=== PATIENT | male | born 1980 | race Caucasian/White ===

== ENCOUNTER 2022-10-08 14:43 | Emergency (ER) | payer OTHER, SELFPAY ==
--- NOTE | 2022-10-08 14:48 | ED.URI ---
HPI - URI/Sore Throat General Chief Complaint: General Medical <Brenda Vasquez NP - Last Filed: 10/08/22 14:49> Stated Complaint: sore throat red eyes congestion <Brenda Vasquez NP - Last Filed: 10/08/22 14:49> Time Seen by Provider: 10/08/22 15:00 <Brenda Vasquez NP - Last Filed: 10/08/22 14:49> History of Present Illness HPI Narrative: Patient complains of cough, runny nose, redness in both eyes that started in 1 eye with discharge and then went to the other, there is no vision loss there is no pain in the eye there is no photophobia Cough is been worsening over last several days, symptoms began about a week ago There is no headache no confusion no dizziness no fainting no feeling faint no difficulty breathing or swallowing no stiff neck no chest pain no shortness of breath no abdominal pain no nausea vomiting or diarrhea no dysuria no skin rash <VICTOR M Harvey - Last Filed: 10/09/22 10:56> Related Data Home Medications: Previous Rx's Medication Instructions Recorded azithromycin 250 mg tablet See Rx Instructions PO .COMPLEX #6 10/08/22 (Zithromax Z-Thiago) tabs polymyxin B sulfate 10,000 1 drp ophthalmic (eye) Q3H 5 days 10/08/22 unit-trimethoprim 1 mg/mL eye #10 mL drops (Polytrim) <Brenda Vasquez NP - Last Filed: 10/08/22 14:49> Allergies/Adverse Reactions: Allergies Allergy/AdvReac Type Severity Reaction Status Date / Time No Known Allergies Allergy Verified 10/08/22 14:49 <Brenda Vasquez NP - Last Filed: 10/08/22 14:49> [facility] [place] Past Medical History Source: nursing notes reviewed <VICTOR M Harvey - Last Filed: 10/09/22 10:56> Social History Social History: Social History Advance Directives: Yes Advance Directives Information Provided: No Advance Directives on File: No <Brenda Vasquez NP - Last Filed: 10/08/22 14:49> Physical Exam Vital Signs: Vital Signs: Last Vital Signs Temp 98.3 F 10/08/22 14:49 Pulse 104 H 10/08/22 14:49 Resp 18 10/08/22 14:49 BP 170/100 H 10/08/22 14:49 Pulse Ox 96 10/08/22 14:49 O2 Del Method 10/08/22 14:49 BMI result Body Mass Index 38.6 <Brenda Vasquez NP - Last Filed: 10/08/22 14:49> Vital Signs: Last Vital Signs Temp 98.3 F 10/08/22 14:49 Pulse 104 H 10/08/22 14:49 Resp 18 10/08/22 14:49 BP 170/100 H 10/08/22 14:49 Pulse Ox 96 10/08/22 14:49 O2 Del Method 10/08/22 14:49 BMI result Body Mass Index 38.6 <VICTOR M Harvey - Last Filed: 10/09/22 10:56> General appearance no acute distress The eyes , visual acuity is normal, both eyes have conjunctival redness and some scant yellow discharge, pupils equal round reactive to light and extraocular motions are intact, there is no photophobia The pharynx is clear without redness swelling or exudate, mucous membranes moist, voice is normal Neck is supple Chest clear to auscultation bilateral Heart no murmur Abdomen soft nontender Extremities no edema no calf tenderness or swelling , full range of motion times Skin no rash <VICTOR M Harvey - Last Filed: 10/09/22 10:56> Course Course Course Narrative: This is rapid medical exam. Deferred additional HPI, ROS, PE to primary provider. 42 yo male healthy here with bilateral eye redness, cough, congestion since Monday. Will send testing for flu, covid, rsv. VSS. <Brenda Vasquez NP - Last Filed: 10/08/22 14:49> This is rapid medical exam. Deferred additional HPI, ROS, PE to primary provider. 42 yo male healthy here with bilateral eye redness, cough, congestion since Monday. Will send testing for flu, covid, rsv. VSS. Patient is treated for possible bacterial conjunctivitis with Polytrim, redness and discharge started in 1 eye and then did go to the other Chest x-ray was normal, the COVID and flu testing were negative Patient is given antibiotic for bronchitis and well-appearing patient with worsening cough but otherwise breathing comfortably ambulating easily tolerating p.o. is discharged <VICTOR M Harvey - Last Filed: 10/09/22 10:56> Medical Decision Making Lab Data MDM Lab Attestation statement: I reviewed the patient's lab results. <VICTOR M Harvey - Last Filed: 10/09/22 10:56> Labs: Lab Results 10/08/22 Range/Units 14:53 Influenza Type A (PCR) NEGATIVE (Negative) Influenza Type B (PCR) NEGATIVE (Negative) RSV RNA Qual (PCR) NEGATIVE (Negative) SARS-CoV-2 RNA (RT-PCR) NEGATIVE (Negative) <Brenda Vasquez NP - Last Filed: 10/08/22 14:49> Lab Results 10/08/22 Range/Units 14:53 Influenza Type A (PCR) NEGATIVE (Negative) Influenza Type B (PCR) NEGATIVE (Negative) RSV RNA Qual (PCR) NEGATIVE (Negative) SARS-CoV-2 RNA (RT-PCR) NEGATIVE (Negative) <VICTOR M Harvey - Last Filed: 10/09/22 10:56> Discharge Plan Discharge Clinical Impression: Conjunctivitis, Bronchitis <Brenda Vasquez NP - Last Filed: 10/08/22 14:49> Patient Disposition: Home, Self-Care <Brenda Vasquez NP - Last Filed: 10/08/22 14:49> Additional Instructions: For the redness and discharge from both eyes which started in 1 eye, it may be viral but because it started in 1 and went to the other there is a chance it is bacterial so we are treating with eyedrops, antibiotic eyedrops For the cough it is probably viral but may be bacterial and so we have given a prescription for Zithromax, best plan is to wait a few days and if cough is getting worse take the antibiotic but if in a day or 2 it is clearly getting better you do not need the antibiotic Return any time for difficulty breathing dehydration, eye pain vision loss any worse condition or any concerns <Brenda Vasquez NP - Last Filed: 10/08/22 14:49> Prescriptions: New polymyxin B sulf-trimethoprim [Polytrim] 10,000 unit- 1 mg/mL drops 1 drp ophthalmic (eye) Q3H 5 Days Qty: 10 0RF Rx Instructions: while awake; do not exceed 6 doses in 24 hours azithromycin [Zithromax Z-Thiago] 250 mg tablet See Rx Instructions .ROUTE .COMPLEX Qty: 6 0RF Rx Instructions: For 250 mg dose pack: take 500 mg today (day 1), then 250 mg for 4 days (days 2-5) <Brenda Vasquez NP - Last Filed: 10/08/22 14:49> Interventions: ED Discharge Assessment Last Done: 10/08/22 16:58 <Brenda Vasquez NP - Last Filed: 10/08/22 14:49> Discharge Date/Time: 10/08/22 17:00 <Brenda Vasquez NP - Last Filed: 10/08/22 14:49>
[2022-10-08 14:49] VITALS: BP 170/100; PULSE 104; RESP 18; TEMP 36.8; O2SAT 96; BMI 38.6
[2022-10-08 16:46] LABS: Influenza A PCR NEGATIVE (Negative); Influenza B PCR NEGATIVE (Negative); Resp Syncy Virus RNA Qual PCR NEGATIVE (Negative); SARS COV2 PCR INHOUSE NEGATIVE (Negative)
== END 2022-10-08 17:00 | disposition home or self-care (01) ==
PROVIDERS: Nurse Practitioner Family; Emergency Provider Emergency Medicine; PCP Internal Medicine
DX: J40 Bronchitis, not specified as acute or chronic (principal); H10.9 Unspecified conjunctivitis; Z20.822 Contact with and (suspected) exposure to COVID-19; Z20.828 Contact with and (suspected) exposure to other viral communicable diseases
CPT/HCPCS: 0241U; 99282; 99283